=== PATIENT | male | born 1990 | race Caucasian/White ===

== ENCOUNTER 2018-08-30 12:00 | Inpatient (IN) | payer MEDICAID, SELFPAY ==
--- NOTE | 2018-08-30 12:09 | PCM.HP.STD ---
Problem List (1) Acute opioid withdrawal Status: Acute (2) Polysubstance abuse Status: Chronic (3) Anxiety and depression Status: Chronic (4) Hepatitis C Status: Chronic Qualifiers: Viral hepatitis chronicity: unspecified (5) Tobacco dependence Status: Chronic (6) Heroin dependence Status: Chronic History of Present Illness Date of Admission: 08/30/18 Chief Complaint: Acute opiate withdrawal The patient is a 28 y/o M w/ PMHx: Polysubstance abuse including admitted Heroine IV (1/2-1 gm daily), IV Crack usage, Meth usage, Cannabis usage, Tobacco use, Anxiety and Depression, Known Hepatitis C without treatment who presents to the [facility] on 08/30/18 w/ noted opiate withdrawal onset starting 08/30/18 AM following last dose 08/29/18 6-7 pm, 1/4 gm with abdominal pain/cramping, generalized body aches and pains, rhinorrhea, piloerection, fatigue, restless leg, sweating, yawning. Patient interested in attaining clean status. He notes he had treatment ~ 1 year prior. He notes that he was previously living with his girlfriend who has been clean x 1 year; however, they secondary to his resumption of use. He notes plans for inpatient rehabilitation following acute care. Last usage L antecubital fossa. Past Medical History Past Medical History (Chronic Problems): Chronic Problems Polysubstance abuse (Chronic) Anxiety and depression (Chronic) Hepatitis C (Chronic) Anxiety disorder (Chronic) Tobacco dependence (Chronic) Heroin dependence (Chronic) Allergies No Known Allergies Allergy (Verified 07/06/17 16:45) Home Medications: Ambulatory Orders Medication Instructions Recorded NK 07/06/17 Surgical History: - - Right heel surgery. Psychiatric History: Anxiety, Depression Lives: - - Patient was recently living with his girlfriend however they have and he does not have a place to live therefore following inpatient acute care he will transition to outpatient facility. Smoking Status: Current every day smoker - Smokes cigarette tobacco 1/2-1 pack/day. Tobacco Use: Cigarettes Alcohol: None Drugs: - - She notes polysubstance abuse including crack, heroin, methamphetamines. - *Family History Maternal History Items: - - Patient denies any marked maternal or paternal family history including heart disease, diabetes, cancer or any substance abuse. Paternal History Items: - - Patient denies any marked maternal or paternal family history including heart disease, diabetes, cancer or any substance abuse. Review of Systems Constitutional: Reports: Anorexia, Malaise, Weakness, Fatigue. Denies: Chills, Fever, Weight Change HEENT: Denies: Head Aches, Sinus Congestion, Sinus Drainage Cardiovascular: Denies: Chest Pain, Palpitations Respiratory: Denies: Cough, Shortness of breath at rest, Sputum production Gastrointestinal: Reports: Abdominal Pain, Diarrhea, Nausea. Denies: Vomiting Genitourinary: Denies: Dysuria Musculoskeletal: Reports: Joint Pain, Muscle pain. Denies: Joint Tenderness Skin: Reports: Skin Changes. Denies: Rash, Wounds Neurological: Denies: Numbness, Tingling, Focal weakness Psychiatric: Reports: Anxiety, Depression. Denies: Homicidal Ideations, Suicidal Ideations Hematologic/ Lymphatic: Denies: Easy Bruising, Easy Bleeding VTE Information - Inpt Only VTE Present on Admission: No VTE Mechan Device Prophylaxis: SCD's VTE Pharm Prophylaxis ordered?: No Reason prophylaxis not ordered:: Treatment Not Indicated - Low risk, ambulation. Subjective: Seated upright chair, notes feeling improved since initiation of Subutex regimen, less agitation although does tend to pick at his right hand which has several scabs on it. Objective: Physical Examination: General: awake, alert, oriented x 3 and cooperative, seated upright side chair, still mildly agitated, moving quite a bit, picking at right hand but much improved since initial presentation following initiation of Subutex regimen. Skin: normal color, turgor, no icterus, cyanosis notable abrasions, scabs, does admit to picking tendencies, last injection site left antecubital fossa which does not appear infected. HEENT: AT/NC, EOMI, PERRLA, mildly dry MM, no carotid bruits or JVD noted. Lungs: CTA bilaterally, moderate effort, mild decrease BL bases, no rales, ronchi or wheezing. Heart: Regular rate and rhythm; no gallop, rub audible. Abdomen: soft, thin habitus, NTTP, ND, normal BS, no marked HSM noted. Extremities: no cyanosis, clubbing, or edema. Neurological: patient awake, alert, oriented x 3; cognitive function intact; pupils equally reactive to light and accomodation; cranial nerves II-XII grossly normal, moving all 4 extremities, no focal deficits, remains mildly agitated, notes feeling improved since initiation of Subutex but states prior to this was feeling poorly with abdominal cramping, nausea, strength mildly to moderately globally decreased, improved since initial presentation to [facility]. Psychiatric: affect appears fatigued, mildly agitated but improved, no acute evidence of depressive or anxiety feelings. Assessment/Plan All Active Problems Acute opioid withdrawal (Acute) The patient is a 28 y/o M w/ PMHx: Polysubstance abuse including admitted Heroine IV (1/2-1 gm daily), IV Crack usage, Meth usage, Cannabis usage, Tobacco use, Anxiety and Depression, Known Hepatitis C without treatment who presents to the [facility] at [facility] on 08/30/18 w/ noted opiate withdrawal onset starting 08/30/18 AM following last dose 08/29/18 6-7 pm, 1/4 gm with abdominal pain/cramping, generalized body aches and pains, rhinorrhea, piloerection, fatigue, restless leg, sweating, yawning. (1) Acute Opiate Withdrawal: Will admit to [place], obtain routine labs including CBC, CMP, urine for drug screen, urinalysis, serum lipase, routine EKG and will initiate and continue on [facility] service protocol with tapering course of Subutex, as needed Seroquel, Librium, Sinemet, Catapres, Bentyl, Vistaril, IV fluids, IV antiemetics, Tylenol as needed for pain. Once patient clinically improved and completion of taper nearing will plan [facility] assistance for transition to next level of rehabilitation care. (2) Polysubstance Abuse, IVDA Hx, History of Hepatitis C, Chronic: Patient currently not candidate for hep C treatment currently as needs to be clean, sober x 6 months, documented attendance NA or AA meetings, counseling and ongoing negative drug screens. Once appropriate GI, ID to initiate. HIV, hepatitis panel to assess for co-infection pending. Encouraged PCP establishment and follow-up. (3) Tobacco Abuse: Encouraged cessation, inpatient consultation per RT, NR if desired. (4) Anxiety and Depression: Untreated, encouraged follow-up with therapy in outpatient rehabilitation facility following transition. (5) DVT Prophylaxis: HIRA, low risk, ambulation. Code Visit Inpatient E&M: 93713 Init Hosp L3
[2018-08-30 12:49] LABS: Absolute Neutrophil Count 5.7 X10^3/uL (2.0-7.7); Basophil# 0.02 X10^3/uL; Basophil% 0.2 % (0-1); Eosinophil# 0.18 X10^3/uL; Eosinophils% 2.1 % (0-5); Hematocrit 41.1 % (40-54); Hemoglobin 13.9 g/dl (13.0-16.5); Lymphocyte % 19.1 % (19-41); Mean Corp Hgb Conc 33.8 g/gl (32-36); Mean Corpuscular Volume 85.6 fL (80-94); Mean Platelet Vol. 9.2 fl (6.2-12.0); Monocyte# 0.85 X10^3/uL; Monocyte% 10.1 % (0-10); Neutrophil # 5.72 X10^3/uL (2.7-7.7); Neutrophil % 68.3 % (47-70); POSITIVE COUNT NO; POSITIVE DIFFERENTIAL NO; POSITIVE MORPHOLOGY NO; Platelet Count 315 K/mm3 (150-450); RBC Distribution Width CV 12.9 % (11.6-14.6); RBC Distribution Width SD 40.2 fl (35.1-43.9); White Blood Count 8.4 K/mm3 (4.4-11.0)
[2018-08-30 12:59] LABS: Prothrombin Time (Protime)PT. 13.1 SECONDS (11.7-14.9)
[2018-08-30 13:08] LABS: ALB/GLOB Ratio 0.8 RATIO (0.9-2.4); AST(SGOT) 37 U/L (15-37); Alanine Aminotransfer ALT/SGPT 45 U/L (16-61); Albumin, Serum 3.3 g/dL (3.2-5.0); Alkaline Phosphatase 94 U/L (45-117); Anion Gap 7 (5-15); BUN 14 mg/dL (7-18); BUN/Creat Ratio 15.5 RATIO (10-20); Calcium,Total 8.4 mg/dL (8.5-10.1); Chloride 102 mmol/L (98-107); EST Glomerular Filtration Rate 106 mL/min (>60); Est Glom Filt Rate - Afr Amer 128 mL/min (>60); Estimated Creatinine Clearance 114.46 ml/min; Globulin 4.4 g/dL (2.2-4.2); Glucose 106 mg/dL (74-106); Lipase 117 U/L (73-393); Potassium 3.6 mmol/L (3.5-5.1); Protein, Total 7.7 g/dL (6.4-8.2); Sodium Level 138 mmol/L (136-145)
[2018-08-30 13:10] VITALS: BP 123/74; PULSE 87; RESP 18; TEMP 36.8
[2018-08-30] MEDS: Buprenorphine HCl 2 MG TAB.SUBL SL ×2 (13:30→20:24)
[2018-08-30] MEDS: chlordiazePOXIDE 25 MG Capsule PO ×3 (13:31→20:24)
[2018-08-30 13:58] LABS: HIV - WCH Non-Reactive (Nonreactive)
[2018-08-30 14:22] LABS: Amphetamine Urine VISTA POSITIVE (<1000 ng/mL); Barbiturate Urine VISTA NEGATIVE (< 200 ng/mL); Benzodiazepine Urine VISTA NEGATIVE (< 200 ng/mL); Cocaine Urine VISTA POSITIVE (< 300 ng/mL); Ecstacy Urine VISTA POSITIVE (< 500 ng/mL); Methadone Urine VISTA NEGATIVE (< 300 ng/mL); PCP Urine VISTA NEGATIVE (< 25 ng/mL); THC Urine VISTA POSITIVE (< 50 ng/mL); Vista UDS pH Range 6
[2018-08-30 18:00] VITALS: BP 127/78; PULSE 92; RESP 18; TEMP 36.3
[2018-08-30] MEDS: Pramipexole Di-HCl 0.25 MG Tablet PO (18:26)
[2018-08-30] MEDS: cloNIDine HCl 0.1 MG Tablet PO (18:26)
[2018-08-30] MEDS: Ibuprofen 600 MG Tablet PO (18:26)
[2018-08-30] MEDS: Ondansetron ODT 4 MG Tablet PO (18:27)
[2018-08-30] MEDS: Magnesium Hydroxide 30 ML UDC PO (20:24)
[2018-08-30] MEDS: Methocarbamol 750 MG Tablet PO (20:24)
[2018-08-30] MEDS: traZODone 50 MG Tablet PO (20:25)
[2018-08-30 22:00] VITALS: BP 113/71; PULSE 86; RESP 16; TEMP 36.6
[2018-08-31] MEDS: chlordiazePOXIDE 25 MG Capsule PO ×4 (00:39→17:06)
[2018-08-31 02:00] VITALS: BP 122/72; PULSE 94; RESP 16; TEMP 36.4
[2018-08-31] MEDS: Buprenorphine HCl 2 MG TAB.SUBL SL ×3 (03:53→19:30)
[2018-08-31] MEDS: Methocarbamol 750 MG Tablet PO ×2 (03:55→19:30)
[2018-08-31 05:10] VITALS: BP 128/75; PULSE 98; RESP 18; TEMP 36.3
--- NOTE | 2018-08-31 06:57 | PCM.PN.HOSP ---
Subjective: Patient with no acute events overnight per self and per nursing report. Patient with recent withdrawal regimen this morning, more sedate than prior, seated upright in the chair with no complaints otherwise. Patient denies fevers, chills, nausea, emesis, abdominal pain, chest pain or dyspnea. Objective: Physical Examination: General: awakens to stimuli, more sedate, recent regimen dosing, intermittently alert, oriented x 3 but falling asleep easily, cooperative, seated upright side chair. Skin: normal color, turgor, no icterus, cyanosis notable abrasions, scabs, does admit to picking tendencies, last injection site left antecubital fossa. HEENT: AT/NC, EOMI, PERRLA, MMM. Lungs: CTA bilaterally, moderate effort, mild decrease BL bases, no rales, ronchi or wheezing. Heart: Regular rate and rhythm; no gallop, rub audible. Abdomen: soft, thin habitus, NTTP, ND, normal BS. Extremities: no cyanosis, clubbing, or edema. Neurological: awakens to stimuli, more sedate, recent regimen dosing, intermittently alert, oriented x 3 but falling asleep easily, cooperative, seated upright side chair, cognitive function decreased currently given recent sedative regimen; pupils equally reactive to light and accomodation; cranial nerves II-XII grossly normal, moving all 4 extremities, sedate currently as noted, strength improving, difficult to assess currently secondary to sedate regimen. Psychiatric: affect appears fatigued, sedate, no acute evidence of depressive or anxiety feelings. Vitals/I&O's: Vital Signs Temp Pulse Resp BP 97.4 F L 98 18 128/75 H 08/31/18 05:10 08/31/18 05:10 08/31/18 05:10 08/31/18 05:10 Oxygen Delivery Method Room Air Weight: 147 lb 5.006 oz Body Mass Index (BMI) 20.0 Intake and Output for Last 24 Hours 08/29/18 08/30/18 08/31/18 23:59 23:59 23:59 Intake Total 1200 / 1200 Balance 1200 / 1200 Laboratory Results 08/30/18 12:35: WBC 8.4, RBC 4.80, Hgb 13.9, Hct 41.1, MCV 85.6, MCH 29.0, MCHC 33.8, RDW 12.9, RDW Differential 40.2, Plt Count 315, MPV 9.2, Immature Gran % (Auto) 0.200, Neut % (Auto) 68.3, Lymph % (Auto) 19.1, [place] % (Auto) 10.1 H, Eos % (Auto) 2.1, Baso % (Auto) 0.2, Absolute Neuts (auto) 5.7, Absolute Lymphs (auto) 1.60, Total Counted Not Reportable 08/30/18 12:35: PT 13.1, INR 1.0 08/30/18 12:35: Sodium 138, Potassium 3.6, Chloride 102, Carbon Dioxide 29.0, Anion Gap 7, BUN 14, Creatinine 0.90, Estim Creat Clear Calc 114.46, Est GFR (MDRD) Af Amer 128, Est GFR (MDRD) Non-Af 106, BUN/Creatinine Ratio 15.5, Glucose 106, Calcium 8.4 L, Total Bilirubin 0.30, AST 37, ALT 45, Alkaline Phosphatase 94, Total Protein 7.7, Albumin 3.3, Globulin 4.4 H, Albumin/Globulin Ratio 0.8 L, Lipase 117 08/30/18 12:35: Hepatitis A IgM Ab Pending, Hepatitis A Ab Total Pending, Hep Bs Antigen Pending, Hep B Core Total Ab Pending, Hep B Core IgM Ab Pending 08/30/18 12:35: HIV 1&2 Antibody Non-Reactive 08/30/18 14:00: Urine Opiates Screen POSITIVE H, Urine Methadone Screen NEGATIVE, Ur Barbiturates Screen NEGATIVE, Ur Phencyclidine Scrn NEGATIVE, Ur Amphetamines Screen POSITIVE H, U Methamphetamin-MDMA POSITIVE H, U Benzodiazepines Scrn NEGATIVE, Urine Cocaine Screen POSITIVE H, U Cannabinoids Screen POSITIVE H, Ur Drug Screen Comment Current Medications Acetaminophen (Tylenol) 500 mg PO Q4H PRN PRN PRN Reason: Temp > 100.4 F Al Hydroxide/Mg Hydroxide (Mylanta Ii) 30 ml PO Q6H PRN PRN PRN Reason: Gastric burning Bisacodyl (Dulcolax) 10 mg RECTAL DAILY PRN PRN Reason: Constipation Buprenorphine HCl (Buprenorphine Hcl) 4 mg SL Q8H EMRE; Taper Stop: 09/02/18 16:14 Last Admin: 08/31/18 03:53 Dose: 4 mg Chlordiazepoxide (Librium) 25 mg PO Q4H EMRE Stop: 08/31/18 08:16 Last Admin: 08/31/18 03:52 Dose: 25 mg Chlordiazepoxide (Librium) 25 mg PO Q6H PRN PRN PRN Reason: Moderate-Severe Anxiety Clonidine (Catapres) 0.1 mg PO Q2H PRN PRN PRN Reason: Hot/Cold Sweats or Anxiety Last Admin: 08/30/18 18:26 Dose: 0.1 mg Dicyclomine HCl (Bentyl) 20 mg PO Q6H PRN PRN PRN Reason: Abdomnial Discomfort Hydroxyzine HCl (Vistaril Vial) 50 mg IM Q6H PRN PRN PRN Reason: Breakthrough Anxiety Hydroxyzine Pamoate (Vistaril Pamoate Capsule) 50 mg PO Q6H PRN PRN PRN Reason: Mild Anxiety Ibuprofen (Motrin) 600 mg PO Q8H PRN PRN PRN Reason: Mild-Moderate Pain (1-5/10) Last Admin: 08/30/18 18:26 Dose: 600 mg Loperamide HCl (Imodium) 2 - 4 mg PO UD PRN PRN Reason: LOOSE STOOLS Magnesium Hydroxide (Milk Of Magnesia) 30 ml PO DAILY PRN PRN PRN Reason: Constipation Last Admin: 08/30/18 20:24 Dose: 30 ml Methocarbamol (Methocarbamol) 750 mg PO Q6H PRN PRN PRN Reason: Muscle Aches Last Admin: 08/31/18 03:55 Dose: 750 mg Nicotine (Nicoderm Cq (Pbkc)) 21 mg TRANSDERM. DAILY [facility] Nutritional Formula (Lactose Free) (Ensure Enlive) 120 ml PO 4X/DAY EMRE Last Admin: 08/30/18 20:24 Dose: 120 ml Ondansetron HCl (Zofran Odt) 4 mg PO Q6H PRN PRN PRN Reason: NAUSEA Last Admin: 08/30/18 18:27 Dose: 4 mg Pramipexole Dihydrochloride (Mirapex) 0.25 mg PO Q12H PRN PRN PRN Reason: Restless Legs Last Admin: 08/30/18 18:26 Dose: 0.25 mg Quetiapine Fumarate (Seroquel) 25 mg PO Q6H PRN PRN PRN Reason: agitation, anxiety Senna (Senokot) 1 tablet PO QHS PRN PRN Reason: Constipation Trazodone HCl (Desyrel) 50 mg PO QHS [facility] Last Admin: 08/30/18 20:25 Dose: 50 mg Medical Necessity - Tobacco Use Smoking Status: Current every day smoker - Smokes cigarette tobacco 1/2-1 pack/day. Tobacco Use: Cigarettes Assessment/Plan All Active Problems Acute opioid withdrawal (Acute) The patient is a 28 y/o M w/ PMHx: Polysubstance abuse including admitted Heroine IV (1/2-1 gm daily), IV Crack usage, Meth usage, Cannabis usage, Tobacco use, Anxiety and Depression, Known Hepatitis C without treatment who presents to the [facility] on 08/30/18 w/ noted opiate withdrawal onset starting 08/30/18 AM following last dose 08/29/18 6-7 pm, 1/4 gm with abdominal pain/cramping, generalized body aches and pains, rhinorrhea, piloerection, fatigue, restless leg, sweating, yawning. (1) Acute Opiate Withdrawal: Admitted to [place], obtained routine labs including CBC, CMP, urine for drug screen w/ + opiates, amphetamine, methamphetamine, cocaine, cannabis, initiated and continued on [facility] service protocol with tapering course of Subutex, as needed Seroquel, Librium, Sinemet, Catapres, Bentyl, Vistaril, IV fluids, IV antiemetics, Tylenol as needed for pain. Once patient clinically improved and completion of taper nearing will plan [facility] assistance for transition to next level of rehabilitation care. Patient notes last admission was proximal he 1 year prior and from UDS notable concerns for ability to remain clean therefore may benefit from transition to rehab facility following acute withdrawal treatment. (2) Polysubstance Abuse, IVDA Hx, History of Hepatitis C, Chronic: Patient currently not candidate for hep C treatment currently as needs to be clean, sober x 6 months, documented attendance NA or AA meetings, counseling and ongoing negative drug screens. Once appropriate GI, ID to initiate. HIV nonreactive, hepatitis panel currently pending to assess for co-infection pending. Encouraged PCP establishment and follow-up. (3) Tobacco Abuse: Encouraged cessation, inpatient consultation per RT, NR if desired. (4) Anxiety and Depression: Untreated, encouraged follow-up with therapy in outpatient rehabilitation facility following transition. (5) DVT Prophylaxis: HIRA, low risk, ambulation. Code Visit Inpatient E&M: 10681 Subs Hosp L2
[2018-08-31 08:11] LABS: Hepatitis A AB, Total Negative (Negative); Hepatitis A IgM Antibody Negative (Negative); Hepatitis B Core AB IgM Negative (Negative); Hepatitis B Core Ab Total Positive (Negative); Hepatitis C Ab >11.0 s/co ratio (0.0-0.9)
[2018-08-31 08:29] VITALS: BP 99/60; PULSE 72; RESP 14; TEMP 36.4
[2018-08-31 11:27] LABS: HEPATITIS B SURFACE AG Positive (Negative); Hep B Surface Antibodies Reactive (.)
[2018-08-31 12:20] VITALS: BP 98/59; PULSE 65; RESP 14; TEMP 36.5
[2018-08-31] MEDS: Pramipexole Di-HCl 0.25 MG Tablet PO (15:42)
[2018-08-31] MEDS: cloNIDine HCl 0.1 MG Tablet PO ×2 (15:42→19:29)
[2018-08-31] MEDS: Ondansetron ODT 4 MG Tablet PO (15:42)
[2018-08-31 15:43] VITALS: BP 103/82; PULSE 97; RESP 18
[2018-08-31] MEDS: Ibuprofen 600 MG Tablet PO (15:47)
[2018-08-31] MEDS: Senna Tablet 1 TABLET PO (17:06)
[2018-08-31] MEDS: QUEtiapine 25 MG Tablet PO (18:15)
--- NOTE | 2018-08-31 18:23 | NURSING ---
Patient is very anxious at this time. States that he is thinking about leaving. This RN and studio operations engineer in charge in room and are encouraging patient to stay. Seroquel given for anxiety at this time. Nicotine patch that patient refused earlier also given at this time. Dianne RN offered to call [facility] for patient to talk to someone to help with DC plan. Patient declines. This RN remains in room for emotional support.
[2018-08-31 19:20] VITALS: BP 106/54; PULSE 95; RESP 16; TEMP 36.8
[2018-08-31] MEDS: Magnesium Hydroxide 30 ML UDC PO (19:29)
[2018-08-31] MEDS: Acetaminophen 500 MG Tablet PO (19:29)
[2018-08-31] MEDS: hydrOXYzine PAM 25 MG Capsule 50 MG PO (19:30)
[2018-08-31] MEDS: traZODone 50 MG Tablet PO (21:33)
[2018-09-01 04:01] VITALS: BP 94/58; PULSE 76; RESP 16; TEMP 36.4
[2018-09-01] MEDS: Pramipexole Di-HCl 0.25 MG Tablet PO ×2 (04:10→16:34)
[2018-09-01] MEDS: Methocarbamol 750 MG Tablet PO ×3 (04:10→18:47)
[2018-09-01] MEDS: hydrOXYzine PAM 25 MG Capsule 50 MG PO ×3 (04:10→18:47)
[2018-09-01] MEDS: Ibuprofen 600 MG Tablet PO ×2 (04:10→18:54)
[2018-09-01] MEDS: Buprenorphine HCl 2 MG TAB.SUBL SL ×2 (04:10→16:34)
--- NOTE | 2018-09-01 06:55 | PN_ITS ---
Subjective: Patient with no acute events overnight per self and per nursing report. Patient more alert today, sleeping in the bed, awoken easily. Discussed recent hepatitis profile panel obtained and patient's with confirmed hepatitis C with also noted likely chronic hepatitis B with pending additional panel and viral loads. Discussed with patient that this was reviewed with infectious disease and they will evaluate him later today to discuss treatment options and further ongoing care. Patient denies fevers, chills, nausea, emesis, abdominal pain, ch est pain or dyspnea. Objective: Physical Examination: General: awake, alert, oriented x 3 and cooperative, seated upright in bed in no apparent distress. Skin: normal color, turgor, no icterus, cyanosis except notable abrasions, scabs, does admit to picking tendencies, last injection site left antecubital fossa.. HEENT: AT/NC, EOMI, PERRLA, MMM. Lungs: CTA bilaterally, moderate effort, mild decrease BL bases, no rales, ronchi or wheezing. Heart: Regular rate and rhythm; no gallop, rub audible. Abdomen: soft, NTTP, ND, normal BS. Extremities: no cyanosis, clubbing, or edema. Neurological: patient awake, alert, oriented x 3; cognitive function intact; pupils equally reactive to light and accomodation; cranial nerves II-XII grossly normal, moving all 4 extremities, no focal deficits, strength improving, preserved. Psychiatric: affect appears normal, no acute evidence of depressive or anxiety feelings. Vitals/I&O's: Vital Signs Temp Pulse Resp BP 97.6 F L 76 16 94/58 L 09/01/18 04:01 09/01/18 04:01 09/01/18 04:01 09/01/18 04:01 Oxygen Delivery Method Room Air Weight: 147 lb 5.006 oz Body Mass Index (BMI) 20.0 Intake and Output for Last 24 Hours 08/30/18 08/31/18 09/01/18 23:59 23:59 23:59 Intake Total 1600 / 1600 Balance 1600 / 1600 Laboratory Results 08/30/18 12:35: Hepatitis A IgM Ab Negative, Hepatitis A Ab Total Negative, Hep Bs Antigen Positive H, Hep B Core Total Ab Positive H, Hep B Core IgM Ab Negative, Hepatitis C Ab Confirm >11.0 H 08/30/18 12:35: Hepatitis Be Antibody Pending, Hepatitis Be Antigen Pending, HCV RNA Quant (PCR) Pending 08/30/18 12:35: Miscellaneous Test Pending Current Medications Acetaminophen (Tylenol) 500 mg PO Q4H PRN PRN PRN Reason: Temp > 100.4 F Last Admin: 08/31/18 19:29 Dose: 500 mg Al Hydroxide/Mg Hydroxide (Mylanta Ii) 30 ml PO Q6H PRN PRN PRN Reason: Gastric burning Bisacodyl (Dulcolax) 10 mg RECTAL DAILY PRN PRN Reason: Constipation Buprenorphine HCl (Buprenorphine Hcl) 2 mg SL Q12H EMRE; Taper Stop: 09/02/18 16:14 Last Admin: 09/01/18 04:10 Dose: 2 mg Chlordiazepoxide (Librium) 25 mg PO Q6H PRN PRN PRN Reason: Moderate-Severe Anxiety Last Admin: 08/31/18 17:06 Dose: 25 mg Clonidine (Catapres) 0.1 mg PO Q2H PRN PRN PRN Reason: Hot/Cold Sweats or Anxiety Last Admin: 08/31/18 19:29 Dose: 0.1 mg Dicyclomine HCl (Bentyl) 20 mg PO Q6H PRN PRN PRN Reason: Abdomnial Discomfort Hydroxyzine HCl (Vistaril Vial) 50 mg IM Q6H PRN PRN PRN Reason: Breakthrough Anxiety Hydroxyzine Pamoate (Vistaril Pamoate Capsule) 50 mg PO Q6H PRN PRN PRN Reason: Mild Anxiety Last Admin: 09/01/18 04:10 Dose: 50 mg Ibuprofen (Motrin) 600 mg PO Q8H PRN PRN PRN Reason: Mild-Moderate Pain (1-5/10) Last Admin: 09/01/18 04:10 Dose: 600 mg Loperamide HCl (Imodium) 2 - 4 mg PO UD PRN PRN Reason: LOOSE STOOLS Magnesium Hydroxide (Milk Of Magnesia) 30 ml PO DAILY PRN PRN PRN Reason: Constipation Last Admin: 08/31/18 19:29 Dose: 30 ml Methocarbamol (Methocarbamol) 750 mg PO Q6H PRN PRN PRN Reason: Muscle Aches Last Admin: 09/01/18 04:10 Dose: 750 mg Nicotine (Nicoderm Cq (Pbkc)) 21 mg TRANSDERM. DAILY [facility] Last Admin: 08/31/18 18:17 Dose: 21 mg Nutritional Formula (Lactose Free) (Ensure Enlive) 120 ml PO 4X/DAY [facility] Last Admin: 08/31/18 21:33 Dose: Not Given Ondansetron HCl (Zofran Odt) 4 mg PO Q6H PRN PRN PRN Reason: NAUSEA Last Admin: 08/31/18 15:42 Dose: 4 mg Pramipexole Dihydrochloride (Mirapex) 0.25 mg PO Q12H PRN PRN PRN Reason: Restless Legs Last Admin: 09/01/18 04:10 Dose: 0.25 mg Quetiapine Fumarate (Seroquel) 25 mg PO Q6H PRN PRN PRN Reason: agitation, anxiety Last Admin: 08/31/18 18:15 Dose: 25 mg Senna (Senokot) 1 tablet PO QHS PRN PRN Reason: Constipation Last Admin: 08/31/18 17:06 Dose: 1 tablet Trazodone HCl (Desyrel) 50 mg PO QHS [facility] Last Admin: 08/31/18 21:33 Dose: 50 mg Medical Necessity - Tobacco Use Smoking Status: Current every day smoker - Smokes cigarette tobacco 1/2-1 pack/day. Tobacco Use: Cigarettes Assessment/Plan All Active Problems Acute opioid withdrawal (Acute) The patient is a 28 y/o M w/ PMHx: Polysubstance abuse including admitted Heroine IV (1/2-1 gm daily), IV Crack usage, Meth usage, Cannabis usage, Tobacco use, Anxiety and Depression, Known Hepatitis C without treatment who presents to the [facility] on 08/30/18 w/ noted opiate withdrawal onset starting 08/30/18 AM following last dose 08/29/18 6-7 pm, 1/4 gm with abdominal pain/cramping, generalized body aches and pains, rhinorrhea, piloerection, fatigue, restless leg, sweating, yawning. (1) Acute Opiate Withdrawal: Admitted to [place], obtained routine labs including CBC, CMP, urine for drug screen w/ + opiates, amphetamine, methamphetamine, cocaine, cannabis, initiated and continued on [facility] service protocol with tapering course of Subutex, as needed Seroquel, Librium, Sinemet, Catapres, B entyl, Vistaril, IV fluids, IV antiemetics, Tylenol as needed for pain. Once patient clinically improved and completion of taper nearing will plan [facility] assistance for transition to next level of rehabilitation care. Patient notes last admission was proximal he 1 year prior and from [facility] notable concerns for ability to remain clean therefore may benefit from transition to rehab facility following acute withdrawal treatment. (2) Polysubstance Abuse, IVDA Hx, History of Chronic Hepatitis C, Newly Diagnosed Likely Chronic Hepatitis B: Patient currently not candidate for hep C treatment currently as needs to be clean, sober x 6 months, documented attendance NA or AA meetings, counseling and ongoing negative drug screens. Once appropriate GI, ID to initiate. HIV nonreactive, hepatitis panel 08/31/18 returned w/ hepatitis B surface antigen positive, hepatitis B core total antibody positive, Hepatitis C Ab confirmation >11 consistent with his noted history hepatitis C; however, now noted likely concurrent chronic hepatitis B. Ordered Hep B e Ag, Ab levels as well as viral load with discussion of case with ID and pending ID evaluation to discuss his status and options. (3) Tobacco Abuse: Encouraged cessation, inpatient consultation per RT, NR if desired. (4) Anxiety and Depression: Untreated, encouraged follow-up with therapy in outpatient rehabilitation facility following transition. (5) DVT Prophylaxis: HIRA, low risk, ambulation. Code Visit Inpatient E&M: 16540 Subs Hosp L2
[2018-09-01 08:01] VITALS: BP 102/64; PULSE 67; RESP 16; TEMP 36.4
[2018-09-01] MEDS: Dicyclomine 10 MG Capsule 20 MG PO ×2 (08:13→18:47)
[2018-09-01] MEDS: Acetaminophen 500 MG Tablet PO ×2 (08:13→20:48)
[2018-09-01] MEDS: cloNIDine HCl 0.1 MG Tablet PO ×2 (08:13→16:34)
--- NOTE | 2018-09-01 10:36 | PCM.HP.ID ---
Problem List (1) Hepatitis C Status: Chronic Qualifiers: Viral hepatitis chronicity: unspecified Reason for Consult: hepatitis Consulted by: Dr. Suazo History of Present Illness: The patient is a 28 year old M with IVDU and polysubstance abuse, including heroin, cocaine, meth. Reports he does share needles. Does not lick needles or injection sites. Does drink some etoh. No problems with abscess or cellulitis on injection sites (uses BUE). Came to hospital because he was tired of using dope. Some fever and chills. No h/o jaundice. Denies abd pain or n/v/d. Tests (+) for hep B and C, neg for HIV. Not sure if he has ever been tested before. Full ROS performed and neg except as noted above. - Medical History Past Medical History (Chronic Problems): Chronic Problems Polysubstance abuse (Chronic) Anxiety and depression (Chronic) Hepatitis C (Chronic) Anxiety disorder (Chronic) Tobacco dependence (Chronic) Heroin dependence (Chronic) Allergies/Adverse Reactions: Allergies No Known Allergies Allergy (Verified 07/06/17 16:45) Home Medications: Ambulatory Orders Medication Instructions Recorded NK 07/06/17 - Social History SMOKING STATUS:: Current every day smoker Alcohol Use: occasionally Drug Use: cocaine, heroin, marijuana Vital Signs Temp Pulse Resp BP 97.5 F L 67 16 102/64 09/01/18 08:01 09/01/18 08:01 09/01/18 08:01 09/01/18 08:01 Oxygen Delivery Method Room Air Weight: 66.82 kg Body Mass Index (BMI) 20.0 Laboratory Tests Past 24 Hrs 08/30/18 08/30/18 08/30/18 12:35 12:35 12:35 Hepatitis A IgM Ab Negative Hepatitis A Ab Total Negative Hep Bs Antigen Positive H Hep B Core Total Ab Positive H Hep B Core IgM Ab Negative Hepatitis Be Antibody Pending Hepatitis Be Antigen Pending Hepatitis C Ab Confirm >11.0 H HCV RNA Quant (PCR) Pending Miscellaneous Test Pending - Other Studies Radiology: [] reviewed Other Studies: [] Route of nutrition/ use of supplements: [] Nutritional Intake: [] IV Site: [] Sales Catheter: [] - Physical Exam General: Alert, Oriented x3, Cooperative, No apparent distress, - - ill appearing HEENT: Atraumatic, PERRLA, EOMI Neck: Supple, No Nodes Lungs: Clear to auscultation, Normal air movement Cardiovascular: Regular rate, Regular Rhythm, No murmurs Abdomen: Soft, Non Tender, Non-Distended Extremities: No edema Skin: No rashes, Excoriated, - - healing BUE injection sites Musculoskeletal: No Tenderness to Palpation of Joints or Extremities Neurological: Cranial nerves II-XII grossly intact - Assessment/Plan Antibiotics: [] Assessment/Plan: [] IVDU with hep B and C (+) tests - does share needles. HIV neg. Recommended repeat testing in 2-3 months. Discussed with primary team, and Hep B pcr, hep C pcr, Hep B EAg are pending. Counseled him re: risks of B and C coinfection, and need to abstain from drugs and etoh. He can follow up with me for treatment depending on further results. Will follow, thank you.
[2018-09-01] MEDS: Polyethylene Glycol 3350 17 GM PACKET PO (11:29)
[2018-09-01] MEDS: Ondansetron ODT 4 MG Tablet PO ×2 (13:27→20:48)
[2018-09-01] MEDS: chlordiazePOXIDE 25 MG Capsule PO ×2 (13:27→20:48)
--- NOTE | 2018-09-01 13:50 | CHAPLAIN ---
Type of Pastoral Visit _x__ Initial Visit ___ Follow-up Visit ___ On-call Visit ___ General Patient Visit ___ Spiritual Assessment ___ Family Conference ___ Bereavement ___ Rapid Response ___ Code Blue ___ Other (describe below) Pastoral Care Referral From _x__ Patient ___ Family ___ Nurse ___ Physician ___ Spectrographic Analyst ___ Patient Observer ___ Other (describe below) Sacrament/Intervention _x__ Active listening ___ Anointing ___ Scientologist ___ Bereavement ___ Communion ___ Dana exploration ___ _x__ Life review ___ Prayer ___ Reconciliation ___ Sacrament of Sick _x__ Supportive presence ___ Wedding ___ Other (describe below) Pastoral Comments patient is remembered from previous admission and 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
--- NOTE | 2018-09-01 16:32 | DCINST_ITS ---
- Discharge Diagnoses Current Active Problems: Current Active and Chronic Problems (1) Acute Opiate Withdrawal (2) Polysubstance Abuse, IVDA Hx, History of Chronic Hepatitis C, Newly Diagnosed Likely Chronic Hepatitis B (3) Tobacco Abuse (4) Anxiety and Depression You will use the following diet at home:: Regular Your food should be the consistency of: Regular Your liquids should be the consistency of: Regular/Thin Discharge Activity: Return to Normal Activity May resume sexual activity in: - - See directions below. Instructions: Understanding Heroin Abuse and Addiction, Treating Heroin Addiction, ED Narcotic Abuse, Why Do You Smoke?, Planning to Quit Smoking, Treating Hepatitis B (HBV), Treating Hepatitis C (HCV), Understanding Hepatitis B (HBV), Understanding Hepatitis C (HCV), Hepatitis C: Preventing the Spread Additional Instructions: You have hepatitis B and C, these may be sexually transmitted therefore it is very important to use prophylactics, i.e. Muñoz and letting your sex partners know that you have the disease. It is vital that you not sure any razors, toothbrushes or anything that might have blood on it. It is vital that you do not share needles or syringes. It is vital that you use bandages to cover cuts and any open sores especially given you have a tendency for picking. You can clean drops of your blood off of things with a mixture of bleach and water with using 9 times more water than bleach if this mixture as needed. Please follow-up with Dr. Paulino to continue assessment and discuss treatment for hepatitis B and C. It is vital that you remain sober, clean. Pending Tests on Discharge: Per Dr. Paulino recommendation additonal testings obtained and pending on discharge that may be reviewed at follow-up with him include: Hep B e Ag, Ab levels as well as viral load hepatitis B and C Allergies/Adverse Reactions: Allergies No Known Allergies Allergy (Verified 07/06/17 16:45) Medications to take at Discharge NK 07/06/17 Primary Care Physician: Care Physician,No Primary [Primary Care Provider] - Please follow up with your Primary Care Physician in: Please establish with PCP, list given within 1-2 weeks. Test Results: Test results from this visit will be discussed in further detail at your follow- up appointment, if applicable. Please Follow Up With: Curtis Paulino MD When: Please follow-up in 1-2 weeks. Please Follow Up With: [facility] When: Please continue w/ [facility] care. Proposed Discharge Date: 09/02/18
[2018-09-01] MEDS: Senna Tablet 1 TABLET PO (16:42)
[2018-09-01] MEDS: Magnesium Hydroxide 30 ML UDC PO (16:42)
[2018-09-01] MEDS: Mag Hydrox/Al Hydrox/Simeth 30 ML UDC PO (16:44)
[2018-09-01 16:47] VITALS: BP 108/68; PULSE 99; RESP 16; TEMP 36.7
[2018-09-01 20:36] VITALS: BP 98/51; PULSE 95; RESP 16; TEMP 36.9
[2018-09-01] MEDS: traZODone 50 MG Tablet PO (20:48)
[2018-09-01] MEDS: QUEtiapine 25 MG Tablet PO (20:48)
[2018-09-02 04:53] VITALS: BP 89/47; PULSE 90; RESP 16; TEMP 36.8
[2018-09-02] MEDS: hydrOXYzine PAM 25 MG Capsule 50 MG PO (04:58)
[2018-09-02] MEDS: Acetaminophen 500 MG Tablet PO (04:58)
[2018-09-02] MEDS: Buprenorphine HCl 2 MG TAB.SUBL SL (04:58)
[2018-09-02] MEDS: Pramipexole Di-HCl 0.25 MG Tablet PO (04:58)
[2018-09-02] MEDS: QUEtiapine 25 MG Tablet PO (04:58)
--- NOTE | 2018-09-02 06:43 | PCM.DC.SUM ---
Discharge Date and Diagnosis Date of Admission: 08/30/18 Date of Discharge: 09/02/18 - Primary Discharge Diagnosis (1) Acute Opiate Withdrawal (2) Polysubstance Abuse, IVDA Hx, History of Chronic Hepatitis C, Newly Diagnosed Likely Chronic Hepatitis B (3) Tobacco Abuse (4) Anxiety and Depression - Secondary Discharge Diagnosis Chronic Problems Polysubstance abuse (Chronic) Anxiety and depression (Chronic) Hepatitis C (Chronic) Anxiety disorder (Chronic) Tobacco dependence (Chronic) Heroin dependence (Chronic) Hospital Course and Treatment Infectious Disease Dr. Paulino [facility] Operations: None Procedures: None Summary of Care Provided: The patient is a 28 y/o M w/ PMHx: Polysubstance abuse including admitted Heroine IV (1/2-1 gm daily), IV Crack usage, Meth usage, Cannabis usage, Tobacco use, Anxiety and Depression, Known Hepatitis C without treatment who presented to [facility] on 08/30/18 w/ noted opiate withdrawal onset starting 08/30/18 AM following last dose 08/29/18 6-7 pm, 1/4 gm with abdominal pain/cramping, generalized body aches and pains, rhinorrhea, piloerection, fatigue, restless leg, sweating, yawning. Admitted to [facility], obtained routine labs including CBC, CMP, urine for drug screen w/ + opiates, amphetamine, methamphetamine, cocaine, cannabis, initiated and continued on [facility] service protocol with tapering course of Subutex, as needed Seroquel, Librium, Sinemet, Catapres, Bentyl, Vistaril, IV fluids, IV antiemetics, Tylenol as needed for pain. Discussed with patient currently not candidate for hep C treatment as needs to be clean, sober x 6 months, documented attendance NA or AA meetings, counseling and ongoing negative drug screens. HIV nonreactive, hepatitis panel obtained 08/31/18 returned w/ hepatitis B surface antigen positive, hepatitis B core total antibody positive, Hepatitis C Ab confirmation >11 consistent with his noted history hepatitis C; however, now noted likely concurrent chronic hepatitis B. Discussed with patient evidence co-infection. Ordered Hep B e Ag, Ab levels as well as viral load with discussion of case with ID who also evaluated the patient. Patient discharged to [facility] with encouraged PCP establishment in his region w/ options given to him in addition to follow-up with Infectious Disease follow-up with review of pending labs at that time. DAY OF DISCHARGE PROGRESS NOTE: Subjective: Patient without acute event overnight per self and nursing report. Patient denies fever, chills, nausea, emesis, abdominal pain, chest pain or dyspnea. Patient agreeable to [facility]. Patient will be discharged with encouraged establishment with primary care physician within 3-5 days in addition to Infectious disease to be re-evaluated and review pending hepatitis B and C labs. Objective: T 98.2, heart rate 90, BP 90/51, respiratory rate 16, and a percent on room air. Physical Examination: General: awake, alert, oriented x 3 and cooperative, seated upright in bed in no apparent distress. Skin: normal color, turgor, no icterus, cyanosis except notable abrasions, scabs, does admit to picking tendencies, last injection site left antecubital fossa, non-infected appearance. HEENT: AT/NC, EOMI, PERRLA, MMM. Lungs: CTA bilaterally, moderate effort, mild decrease BL bases, no rales, ronchi or wheezing. Heart: Regular rate and rhythm; no gallop, rub audible. Abdomen: soft, NTTP, ND, normal BS. Extremities: no cyanosis, clubbing, or edema. Neurological: patient awake, alert, oriented x 3; cognitive function intact; pupils equally reactive to light and accomodation; cranial nerves II-XII grossly normal, moving all 4 extremities, no focal deficits, strength preserved. Psychiatric: affect appears normal, no acute evidence of depressive or anxiety feelings. Assessment and Plan: Please see hospital summary above. - Physical Exam Vital Signs Temp Pulse Resp BP 98.2 F 90 16 89/47 L 09/02/18 04:53 09/02/18 04:53 09/02/18 04:53 09/02/18 04:53 Oxygen Delivery Method Room Air Weight: 147 lb 5.006 oz Body Mass Index (BMI) 20.0 Intake and Output for Last 24 Hours 08/31/18 09/01/18 09/02/18 23:59 23:59 23:59 Intake Total 1600 / 1600 400 / 400 Balance 1600 / 1600 400 / 400 Discharge Activity: Return to Normal Activity May resume sexual activity in: - - See directions below. Home Medications: Medications to take at Discharge NK 07/06/17 Primary Care Physician: Care Physician,No Primary [Primary Care Provider] - Please follow up with your Primary Care Physician in: Please establish with PCP, list given within 1-2 weeks. Please Follow Up With: Curtis Paulino MD When: Please follow-up in 1-2 weeks. Please Follow Up With: [facility] When: Please continue w/ [facility] plan of care. Patient Instructions: Understanding Hepatitis C (HCV), Treating Hepatitis C (HCV), Treating Hepatitis B (HBV), Understanding Hepatitis B (HBV), Why Do You Smoke?, Planning to Quit Smoking, Understanding Heroin Abuse and Addiction, Treating Heroin Addiction, Hepatitis C: Preventing the Spread, ED Narcotic Abuse Disposition: Home Minutes spent on discharge:: 35 Patient Condition:: Fair Medical Necessity - Tobacco Use Smoking Status: Current every day smoker - Smokes cigarette tobacco 1/2-1 pack/day. Tobacco Use: Cigarettes Meaningful Use Info Meaningful Use Diagnoses (Choose all that apply): None applicable Code Visit Inpatient E&M: 79068 Disch Hosp
[2018-09-02 10:00] VITALS: BP 105/62; PULSE 109; RESP 16; TEMP 36.4
[2018-09-02] MEDS: Ibuprofen 600 MG Tablet PO (10:04)
[2018-09-02] MEDS: Polyethylene Glycol 3350 17 GM PACKET PO (10:04)
[2018-09-02] MEDS: Magnesium Hydroxide 30 ML UDC PO (10:04)
[2018-09-02] MEDS: Dicyclomine 10 MG Capsule 20 MG PO (10:07)
--- NOTE | 2018-09-02 10:14 | CASEMGMT ---
RN CM Note. Physician requesting PCP be arranged prior to dc. RN CM intro role of patient and discussed options for obtaining PCP. Pt agitated and states I don't want one. I haven't had one in 6 years, and I'm not starting now. Even with explaining benefits of establishing with physician pt is refusing information. Discussed f/u with Dr. Paulino and pt states he is agreeable. Appointment made for October 12, 2018 @ 1300, after pt''s 30 day rehabilitation. copy of appointment given to patient. Prashant AHUJAN RN ACM
--- NOTE | 2018-09-02 10:29 | NEWVISION ---
Patient is going to [facility] for a 30 day inpatient program. Patient will be transported by advocacy group, [employer].
[2018-09-02] MEDS: Senna Tablet 1 TABLET PO (13:41)
[2018-09-02 20:07] LABS: HCV Quant. RNA PCR 134000 IU/mL (.); Hepatitis Be Ag Positive (Negative)
[2018-09-03 13:05] LABS: HCV log 10 5.127 (.); Hepatitis Be Ab Negative (Negative)
== END 2018-09-02 13:55 | disposition home or self-care (01) | DRG 773 ==
PROVIDERS: Admitting Provider Family Medicine; Referring Provider Family Medicine; Visit Provider Family Medicine
DX: F11.23 Opioid dependence with withdrawal (principal); F17.210 Nicotine dependence, cigarettes, uncomplicated; B18.1 Chronic viral hepatitis B without delta-agent; B18.2 Chronic viral hepatitis C; F19.10 Other psychoactive substance abuse, uncomplicated; F41.9 Anxiety disorder, unspecified; F32.9 Major depressive disorder, single episode, unspecified
CPT/HCPCS: 36415; 80053; 80307; 83690; 85025; 85610; 86703; 86704; 86705; 86706; 86707; 86708; 86709; 86803; 87340; 87350; 87522; 97802